=== PATIENT | male | born 1940 | race Caucasian/White ===

== ENCOUNTER 2016-09-05 08:31 | Day surgery (SDC) | payer MEDICARE, BC ==
--- NOTE | ~2016-09-05 | OP ---
Record Of Operation [facility] [address] [place]. [address] NAME: RUSS WINN : 44 STATUS : [facility] [place] PAT#: [id number] AGE: 76 ADM/REG DATE : 09/05/16 MR#: [id number] REPORT SERV DATE: 09/05/16 DICTATED BY: ASHLEY CARNES DATE: 09/05/16 REPORT STATUS : Draft TRANSCRIBED BY: MODL DATE: 09/05/16 DATE OF PROCEDURE: 09/05/2016 PREOPERATIVE DIAGNOSIS: Chronic sinusitis, septal deviation. 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 PROCEDURE PERFORMED: 1. Septoplasty. 2. Right maxillary antrostomy. 3. Right total ethmoidectomy. 4. Left maxillary antrostomy. 5. Left total ethmoidectomy. 6. Right ethmoid cavity propel implant placement. 7. Left ethmoid cavity propel implant placement. SURGEON: Ashley Carnes M.D. LAUNCH CHECK OUT: None. ANESTHESIA: General. COMPLICATIONS: None. CONDITION: Stable to recovery. INDICATIONS: A 76-year-old male with chronic sinusitis, septal deviation, chronic postnasal drainage, and recirculation phenomenon. PROCEDURE IN DETAIL: The patient was identified in the preop holding, taken back to the operating room, and placed supine on the operating room table. General anesthesia was established. He was prepped and draped in a standard fashion for the operation. A time-out was called and the patient and procedure were confirmed. His nasal septum was injected with 3 mL of 1% lidocaine with 1:100,000 epinephrine on the right and the left side for a total of 6 mL. Two more milliliters were injected into the middle meatus, to the uncinate and middle turbinate bilaterally. Afrin-soaked pledgets were used for vasoconstriction of the middle and inferior meatus. Initially, the operation commenced on the left side. I used a combination of 0 and 30- degree endoscopes as well as the shaver, J curette, and Banning elevator throughout the case. I initially performed an uncinectomy on the left side with a Banning elevator after medializing middle turbinate. A shaver was then used to take down the uncinate. A backbiter was used to expand the antrostomy anteriorly. There was some mucosal thickening within the sinus. No purulent drainage for culture. I then performed an anterior and posterior ethmoidectomy taking down the mucosal disease which had early polypoid change Record Of Operation [facility] [place]. [address] NAME: RUSS WINN : 44 STATUS : [facility] [place] PAT#: [id number] AGE: 76 ADM/REG DATE : 09/05/16 MR#: [id number] REPORT SERV DATE: 09/05/16 DICTATED BY: ASHLEY CARNES DATE: 09/05/16 REPORT STATUS : Draft TRANSCRIBED BY: MODL DATE: 09/05/16 throughout the anterior sinuses. The small ethmoid bones were taken out with flexible forceps; shaver microdebrider was used for mucosa. A J curette was used to run along the roof of the sinus to address mucosal disease in the area. There was significant mild edematous mucosa throughout the anterior and posterior ethmoids. This was irrigated and some ethmoid tissue was sent for culture. The right side was then addressed, but the septal deviation was obstructing view of the middle meatus, so I performed a septoplasty. Septoplasty was performed through a right hemitransfixion incision. Submucoperichondrial envelopes were elevated. A quadrangular cartilage portion was removed for access to the left bony maxillary crest spur on the right nasal body deviation high to the right. This was addressed with Bruce-Marilynn forceps and Koenig scissors. The crest deflection was addressed with a 4 mm osteotome. After this septum was repaired, the inferior and middle meatal regions were widely patent. I could then address the right sinus. I delayed closure for the septum to the end of the case. Using a 0-degree and 30-degree endoscopes on the right side, I performed a right maxillary antrostomy by performing uncinectomy with Banning elevator and shaver microdebrider opening the right maxillary sinus. I then penetrated the anterior and posterior ethmoid air cells taking mucosa with a shaver microdebrider and Rahul-Blamerrittley forceps to take small thin pieces of ethmoid bone and septations. We worked our way back to the posterior ethmoid air cells. There was boggy thick mucosa throughout. I did not address the frontal or sphenoid sinuses. At the end of the case, propel implants were placed in both the right and left ethmoid cavity. The septoplasty approach was closed by morselizing cartilage replacing it within the mucoperichondrial envelope and then closed with 4-0 interrupted chromic sutures. A quilting stitch was placed as well. Bhat splints were modified, so they would not displace the propel implant by cutting the posterior third off the splint. It was then secured to the columella with 2-0 silk suture. The patient was awakened and taken to recovery in stable condition. PH/MODL Ashley Carnes M.D. / [id number] CC: Yo Anderson M.D.
[~2016-09-05 08:31] MED LIST: ASAB PO; HCTZ25B PO; HORIZANT600 MG PO; HYDROCHLOROT25 MG PO; LEVAQUIN5T PO; LIPITOR40 PO; MOTRIN IB200 MG PO; P20 PO; REM15 PO
== END 2016-09-05 19:09 | disposition home or self-care (01) ==
LOC: SDC 08:31
PROVIDERS: Specialist
PROC: 099Q4ZZ Drainage of Right Maxillary Sinus, Percutaneous Endoscopic Approach (ICD-10-PCS; 2016-09-05)
PROC: 099R4ZZ Drainage of Left Maxillary Sinus, Percutaneous Endoscopic Approach (ICD-10-PCS; 2016-09-05)
PROC: 0T2BX0Z Change Drainage Device in Bladder, External Approach (ICD-10-PCS; 2016-09-05)
PROC: 09SM0ZZ Reposition Nasal Septum, Open Approach (ICD-10-PCS; principal; 2016-09-05 10:00)
PROC: 09BV4ZZ Excision of Left Ethmoid Sinus, Percutaneous Endoscopic Approach (ICD-10-PCS; 2016-09-05 10:00)
PROC: 09BU4ZZ Excision of Right Ethmoid Sinus, Percutaneous Endoscopic Approach (ICD-10-PCS; 2016-09-05 10:00)
DX: J32.9 Chronic sinusitis, unspecified (principal); J34.2 Deviated nasal septum; I10 Essential (primary) hypertension; E78.5 Hyperlipidemia, unspecified; I25.10 Atherosclerotic heart disease of native coronary artery without angina pectoris; N40.0 Benign prostatic hyperplasia without lower urinary tract symptoms; E87.1 Hypo-osmolality and hyponatremia; F32.9 Major depressive disorder, single episode, unspecified; Z98.890 Other specified postprocedural states; Z79.899 Other long term (current) drug therapy; Z79.52 Long term (current) use of systemic steroids; R33.9 Retention of urine, unspecified
CPT/HCPCS: 80048; 85014; 85018; 85730; 87015; 87070; 87075; 87102; 87116; 87205; 88305; 93005; 99283; A9270-GY; C2625; J0690; J2710; J3010